=== PATIENT | male | born 1980 | race Caucasian/White ===

== ENCOUNTER 2018-05-24 14:39 | Emergency (ER) | payer OTHER ==
--- NOTE | 2018-05-24 15:15 | EDPHY ---
H & P Stated Complaint: Rt testicle pain and swelling Time Seen by Provider: 05/24/18 14:52 HPI/ROS: CHIEF COMPLAINT: Right testicular pain HISTORY OF PRESENT ILLNESS: 37-year-old male presents with right testicular pain. While lifting weights yesterday, he developed gradual onset of right testicular pain. The pain is mild to moderate and persistent. Alleviated with raising the testicle and remaining still. Today the testicle feels slightly swollen. No fever, urinary symptoms or urethral discharge. No prior similar symptoms. REVIEW OF SYSTEMS: complete 10 point ROS reviewed and is negative except for the noted elements in the HPI - Personal History Current Tetanus/Diphtheria Vaccine: Yes Current Tetanus Diphtheria and Acellular Pertussis (TDAP): Yes - Medical/Surgical History Hx Asthma: No Hx Chronic Respiratory Disease: No Hx Diabetes: No Hx Cardiac Disease: No Hx Renal Disease: No Hx Cirrhosis: No Hx Alcoholism: No Hx HIV/AIDS: No Hx Splenectomy or Spleen Trauma: No Other PMH: vasectomy 04/06/18, - Social History Smoking Status: Never smoked Additional Social History: - Physical Exam Exam: General Appearance: Alert, pleasant Eyes: Pupils equal and round, no conjunctival pallor ENT, Mouth: Mucous membranes moist Neck: Normal inspection Respiratory: Lungs are clear to auscultation Cardiovascular: Regular rate and rhythm Gastrointestinal: Abdomen is soft and nontender Genitourinary: Right testicle-tenderness and swelling of the epididymis, associated with mild induration of the scrotum Neurological: A&O, nonfocal, normal gait Skin: Warm and dry Extremities: Normal inspection Psychiatric: Mood and affect normal Constitutional: Initial Vital Signs Temperature (C) 36.6 C 05/24/18 14:44 Heart Rate 70 05/24/18 14:44 Respiratory Rate 16 05/24/18 14:44 Blood Pressure 115/77 05/24/18 14:44 O2 Sat (%) 96 05/24/18 14:44 O2 Delivery Mode Room Air Allergies/Adverse Reactions: No Known Allergies Allergy (Unverified 05/24/18 14:43) Home Medications: Medication Instructions Recorded Ciprofloxacin [Cipro] 500 mg PO BID #20 tab 05/24/18 Medical Decision Making - Diagnostics Imaging Results: Imaging Impressions Testicular Ultrasound 05/24/18 14:51 Impression: Ultrasound findings suggesting right epididymitis. Skin thickening in the scrotum, which could be cellulitis or edema. Borderline findings for a varicocele. Results called and discussed with Luh Giordano M.D., on May 24, 2018 at 1631. Imaging: Discussed imaging studies w/ order desk caller Radiologist ED Course/Re-evaluation: This patient presents with right testicular pain. UA unremarkable. Testicular ultrasound reveals epididymo-orchitis, results discussed with the patient. Cipro 500 mg orally given. Warning signs discussed. Differential Diagnosis: Differential diagnosis includes does not limited to testicular torsion, scrotal cellulitis, urinary tract infection, acute prostatitis, urethritis. - Data Points Laboratory Results: 05/24/18 16:30 Urine Color PALE YELLOW Urine Appearance CLEAR Urine pH 6.0 (5.0-7.5) Ur Specific [place] 1.013 (1.002-1.030) Urine Protein NEGATIVE (NEGATIVE) Urine Ketones NEGATIVE (NEGATIVE) Urine Blood NEGATIVE (NEGATIVE) Urine Nitrate NEGATIVE (NEGATIVE) Urine Bilirubin NEGATIVE (NEGATIVE) Urine Urobilinogen NEGATIVE EU EU (0.2-1.0) Ur Leukocyte Esterase NEGATIVE (NEGATIVE) Urine Glucose NEGATIVE (NEGATIVE) Medications Given: Discontinued Medications Ciprofloxacin (Cipro) 500 mg PO EDNOW ONE PRN Reason: Protocol Stop: 05/24/18 16:29 Last Admin: 05/24/18 16:39 Dose: 500 mg Departure - Departure Disposition: Home, Routine, Self-Care Clinical Impression: Orchitis and epididymitis Condition: Good Instructions: Epididymo-Orchitis (ED) Additional Instructions: Ibuprofen 600 mg 3 times daily while the pain persists. Referrals: SANDEEP SEGURA [Primary Care Provider] - 3-4 days, if not improved Prescriptions: Ciprofloxacin [Cipro] 500 mg PO BID #20 tab
[2018-05-24] MEDS ORDERED: CIPROFLOXACIN 500 MG TAB PO ONE (16:28)
[2018-05-24 16:48] VITALS: BP 118/72
== END 2018-05-24 16:48 | disposition home or self-care (01) ==
DX: N45.2 Orchitis (principal); N45.1 Epididymitis